=== PATIENT | male | born 1945 | race Two or more races ===

== ENCOUNTER 2024-10-03 17:34 | Inpatient (IN) | payer MEDICARE, MEDICAID ==
[~2024-10-03] VITALS: Ht 167.6 cm; Wt 62.1 kg
[2024-10-03 19:40] VITALS: BP 140/64; PULSE 90; RESP 18; TEMP 36.5292
[2024-10-03 20:00] VITALS: BP 140/64; PULSE 90; RESP 18; TEMP 36.5; O2SAT 100
[2024-10-03] MEDS ORDERED: MULT-647 PO (22:19)
[2024-10-03] MEDS ORDERED: EMPA10TA PO (22:19)
[2024-10-03] MEDS ORDERED: ASPI-1160 PO (22:19)
[2024-10-03] MEDS ORDERED: ACET-2708 PO (22:19)
[2024-10-03] MEDS ORDERED: CLOP75TA33 PO (22:19)
[2024-10-03] MEDS ORDERED: DICL100G58 TP (22:19)
[2024-10-03] MEDS ORDERED: INSU100V3 SUBCUT (22:19)
[2024-10-03] MEDS ORDERED: SITA50TA3 PO (22:19)
[2024-10-03] MEDS ORDERED: CLON0.1T PO (22:19)
[2024-10-03] MEDS ORDERED: ATOR40TA70 PO (22:19)
[2024-10-03] MEDS ORDERED: CILO100T3 PO (22:19)
[2024-10-03] MEDS ORDERED: INSU100I28 SQ (22:19)
[2024-10-03] MEDS ORDERED: INSU100V49 (22:19)
[2024-10-03] MEDS ORDERED: GABA-1180 MT (22:19)
[2024-10-03] MEDS ORDERED: FERR325T6 PO (22:19)
[2024-10-03] MEDS ORDERED: ONDANSETRON HCL 4MG/2ML INJ IV PRN (23:00)
[2024-10-03] MEDS ORDERED: CLONIDINE 0.1MG TABLET PO PRN (23:00)
[2024-10-03] MEDS ORDERED: ZOLPIDEM TARTRATE 5MG TABLET PO PRN (23:00)
[2024-10-03] MEDS ORDERED: ACETAMINOPHEN 325MG TABLET PO PRN (23:00)
[2024-10-03] MEDS ORDERED: DEXTROSE 50% WATER 50ML SYRINGE IV PRN (23:00)
[2024-10-03] MEDS ORDERED: HYDROCODONE/ACETAMINOPHEN 5/325MG TABLET PO PRN (23:00)
[2024-10-03] MEDS ORDERED: MAGNESIUM/ALUMINUM HYDROXIDE/SIMETHICONE 30ML UDC PO PRN (23:00)
[2024-10-03] MEDS ORDERED: ACETAMINOPHEN 500MG TABLET PO PRN (23:00)
[2024-10-03] MEDS: SODIUM CHLORIDE 0.9% 1,000 ML IV SCH (23:37)
[2024-10-04] VITALS: BP 148/61; PULSE 72; RESP 18; TEMP 36.4; O2SAT 100
[2024-10-04 01:35] LABS: INR 1.0
[2024-10-04 04:00] VITALS: BP 145/62; PULSE 79; RESP 18; TEMP 36.6; O2SAT 100
[2024-10-04] MEDS: BLOOD SUGAR DIAGNOSTIC STRIP TEST SCH (07:32)
[2024-10-04] MEDS: INSULIN LISPRO 100 UNITS/ML SUBCUT SCH (07:50)
[2024-10-04 08:00] VITALS: BP 135/69; PULSE 80; RESP 18; TEMP 36.7; O2SAT 100
[2024-10-04] MEDS ORDERED: NALOXONE HCL 0.4MG/ML VIAL IV PRN (08:15)
[2024-10-04] MEDS: GABAPENTIN 300MG CAPSULE PO SCH (08:50)
[2024-10-04] MEDS: CILOSTAZOL 100MG TABLET PO SCH (08:50)
[2024-10-04] MEDS: PANTOPRAZOLE SODIUM 40 MG/VIAL IV SCH (08:51)
[2024-10-04 09:08] LABS: BASOPHILS % 0.6 % (0.0-2.0); EOSINOPHILS % 2.1 % (0.0-5.0); HEMATOCRIT. 24.3 % (42.0-52.0); HEMOGLOBIN. 7.9 g/dL (14.0-18.0); LYMPHOCYTES % 30.0 % (20.0-50.0); MEAN PLATELET VOLUME 8.4 fl (7.4-10.4); MONOCYTES % 8.1 % (2.0-8.0); NEUTROPHILS % 59.2 % (40.0-76.0); PLATELET 186 x1000/uL (130-400); RED BLOOD CELL COUNT 2.64 mill/uL (4.7-6.1); RED CELL DISTRIBUTION WIDTH 15.8 % (11.6-14.6)
[2024-10-04 09:10] LABS: CLARITY URINE CLEAR (CLEAR); COLOR URINE YELLOW (YELLOW); GLUCOSE URINE 3+ (NEGATIVE); KETONES URINE NEGATIVE (NEGATIVE); LEUKOCYTE ESTERASE URINE NEGATIVE (NEGATIVE); NITRITE URINE NEGATIVE (NEGATIVE); OCCULT BLOOD URINE NEGATIVE (NEGATIVE); PH URINE 5.0 (4.5-8.0); PROTEIN URINE NEGATIVE (NEGATIVE); SPECIFIC GRAVITY URINE 1.026 (1.005-1.030); UROBILINOGEN URINE 0.2 E.U./dL (0.2-1.0)
[2024-10-04 09:26] LABS: CREATININE 1.3 mg/dL (0.6-1.3); TRIGLYCERIDE 98.0 mg/dL (0-150); UREA NITROGEN BLOOD 27.0 mg/dL (9-23)
[2024-10-04 09:27] LABS: LDL CHOLESTEROL 33.0 mg/dL (5-100)
[2024-10-04 09:34] LABS: *AMPHETAMINES SCREEN URINE NEGATIVE (NEGATIVE); *BARBITURATES SCREEN URINE NEGATIVE (NEGATIVE); *BENZODIAZEPINES SCREEN URINE NEGATIVE (NEGATIVE); *COCAINE SCREEN URINE NEGATIVE (NEGATIVE); CANNABINOID URINE SCREEN NEGATIVE (NEGATIVE); ECSTASY MDMA SCREEN URINE NEGATIVE (NEGATIVE); METHADONE URINE SCREEN NEGATIVE (NEGATIVE); OPIATES URINE SCREEN NEGATIVE (NEGATIVE); PHENCYCLIDINE URINE SCREEN NEGATIVE (NEGATIVE)
[2024-10-04 10:52] LABS: SQUAMOUS EPITHELIAL CELL URINE FEW /lpf (RARE/1+)
[2024-10-04 10:53] LABS: WBC URINE 0-2 /hpf (0-2)
[2024-10-04 10:54] LABS: BACTERIA URINE TRACE
[2024-10-04 10:56] LABS: RBC URINE NONE SEEN /hpf (0-2)
[2024-10-04 16:00] VITALS: BP 126/59; PULSE 78; RESP 18; TEMP 36.4; O2SAT 100
[2024-10-04 20:00] VITALS: BP 145/58; PULSE 71; RESP 20; TEMP 35.6; O2SAT 96
[2024-10-04] MEDS: ENOXAPARIN 40MG/0.4ML SYR SUBCUT SCH (20:00)
[2024-10-04] MEDS: ATORVASTATIN CALCIUM 40MG TABLET PO SCH (21:24)
[2024-10-04] MEDS: INSULIN GLARGINE 100 UNITS/ML SUBCUT SCH (21:25)
[2024-10-05] VITALS: BP 131/57; PULSE 72; RESP 20; TEMP 35.8; O2SAT 97
[2024-10-05 04:00] VITALS: BP 154/54; PULSE 67; RESP 20; TEMP 36.3; O2SAT 95
[2024-10-05 05:04] LABS: BASOPHILS % 0.5 % (0.0-2.0); EOSINOPHILS % 3.0 % (0.0-5.0); HEMATOCRIT. 23.1 % (42.0-52.0); HEMOGLOBIN. 7.7 g/dL (14.0-18.0); LYMPHOCYTES % 31.8 % (20.0-50.0); MEAN PLATELET VOLUME 8.4 fl (7.4-10.4); MONOCYTES % 8.4 % (2.0-8.0); NEUTROPHILS % 56.3 % (40.0-76.0); PLATELET 195 x1000/uL (130-400); RED BLOOD CELL COUNT 2.51 mill/uL (4.7-6.1); RED CELL DISTRIBUTION WIDTH 15.6 % (11.6-14.6)
[2024-10-05 05:19] LABS: CREATININE 1.2 mg/dL (0.6-1.3); UREA NITROGEN BLOOD 20.0 mg/dL (9-23)
[2024-10-05 08:00] VITALS: BP 110/56; PULSE 72; RESP 18; TEMP 36.2; O2SAT 98
[2024-10-05 12:00] VITALS: BP 130/60; PULSE 70; RESP 18; TEMP 36.6
[2024-10-05 20:00] VITALS: BP 151/43; PULSE 72; RESP 19; TEMP 36.2; O2SAT 100
[2024-10-06] VITALS: BP 139/56; PULSE 68; RESP 19; TEMP 36.3; O2SAT 95
[2024-10-06 04:00] VITALS: BP 142/51; PULSE 71; RESP 19; TEMP 36.4; O2SAT 95
[2024-10-06 07:49] LABS: BASOPHILS % 0.4 % (0.0-2.0); EOSINOPHILS % 2.8 % (0.0-5.0); HEMATOCRIT. 23.2 % (42.0-52.0); HEMOGLOBIN. 7.8 g/dL (14.0-18.0); LYMPHOCYTES % 26.0 % (20.0-50.0); MEAN PLATELET VOLUME 8.4 fl (7.4-10.4); MONOCYTES % 8.2 % (2.0-8.0); NEUTROPHILS % 62.6 % (40.0-76.0); PLATELET 182 x1000/uL (130-400); RED BLOOD CELL COUNT 2.52 mill/uL (4.7-6.1); RED CELL DISTRIBUTION WIDTH 15.7 % (11.6-14.6)
[2024-10-06 07:57] LABS: CREATININE 1.2 mg/dL (0.6-1.3); UREA NITROGEN BLOOD 15.0 mg/dL (9-23)
[2024-10-06 08:00] VITALS: BP 152/55; PULSE 64; RESP 17; TEMP 36.6; O2SAT 99
[2024-10-06 12:00] VITALS: BP 161/62; PULSE 73; RESP 18; TEMP 36.1; O2SAT 97
[2024-10-06 15:56] VITALS: BP 130/50; PULSE 74; RESP 16; TEMP 97.7
[2024-10-06 16:00] VITALS: BP 117/74; PULSE 82; RESP 18; TEMP 36.5; O2SAT 99
== END 2024-10-06 17:25 | DRG 74 ==
LOC: 6EST 19:40
PROVIDERS: ADMIT Internal Medicine; ATTEND Internal Medicine
DX: E11.40 Type 2 diabetes mellitus with diabetic neuropathy, unspecified (principal); I10 Essential (primary) hypertension; E78.5 Hyperlipidemia, unspecified; Z79.899 Other long term (current) drug therapy
CPT/HCPCS: 36415; 71045; 80048; 80061; 80305; 81003; 82962; 83036; 84443; 85025; 93970; 97162; J1650; J1815; J2470; J7030